=== PATIENT | female | born 1965 | race Caucasian/White ===

== ENCOUNTER 2019-05-11 06:00 | Day surgery (SDC) | payer BC ==
[~2019-05-11] VITALS: Ht 175.3 cm; Wt 98.0 kg
--- NOTE | ~2019-05-11 | OR ---
[facility] [address] [place] [place], [place] [address] [place] DATE OF OPERATION: 05/11/2019 SURGEON: Chiqui Keys MD PREOPERATIVE DIAGNOSIS: ALVARO-1, abnormal appearing cervix. POSTOPERATIVE DIAGNOSIS: ALVARO-1, abnormal appearing cervix, pending pathology. PROCEDURE: LEEP procedure. ANESTHESIA: General ET. ESTIMATED BLOOD LOSS: 5 mL. INDICATIONS AND FINDINGS: The patient is a 53-year-old female, 4, para 3, AB 1, status post prior tubal ligation, who has an abnormal appearance to her cervix. Recent Pap smear was abnormal as well, and she did have colposcopic biopsies, which revealed ALVARO-1. However, because of the abnormal appearance of the cervix, it was felt that further evaluation was needed. An attempt was made to do the LEEP in the office, but this was unsuccessful secondary to side effects of medication. She was thus brought to the OR. At the time of surgery, exam under anesthesia appeared normal other than her cervix had a very large ectropion and had a very woody texture. DESCRIPTION OF PROCEDURE: The patient was prepped and draped in the dorsal lithotomy position. The insulated speculum was placed. The cervix was stained with Lugol's. The entire exocervix did not stain. The large loop was then used to remove the exocervix. The 1st pass was the anterior cervix. Subsequently, small amount on the left posterior was taken off and then the remaining posterior cervix was removed, which was the right and mid using the loop. An endocervical excision was also done using the narrow deep loop. There was lot of mucus as the specimens were obtained. There was a suspicion that these might be multiple tiny nabothian cysts. Following this, the base of the LEEP was treated with the cautery ball. Monsel solution was placed on the base of the cervix following the procedure. PATIENT NAME: FRANCHESKA CRAWFORD OPERATIVE REPORT DATE OF : 67 REPORT #: [id number] PHYSICIAN: CHIQUI KEYS MD PCP: EV PIERRE Priscila[place] REPORT IS CONFIDENTIAL AND NOT TO BE RELEASED WITHOUT AUTHORIZATION [address] [address] [place] Good hemostasis was noted. The instruments were then removed. The patient was taken to the recovery room in good condition. Chiqui Keys MD PJW/MODL /[id number] cc: [facility] Copies: ~ PATIENT NAME: FRANCHESKA CRAWFORD OPERATIVE REPORT DATE OF : 67 REPORT #: [id number] PHYSICIAN: CHIQUI KEYS MD PCP: EV PIERRE REPORT IS CONFIDENTIAL AND NOT TO BE RELEASED WITHOUT AUTHORIZATION
[~2019-05-11 06:00] MED LIST: ALEVE220 M1 PO; FISH OIL 1,0001 EAC6 PO; TYLENOL EXTRA500 MG PO; VENTOLIN HFA18 GM INH
--- NOTE | 2019-05-11 08:20 | NUR ---
[id number]: PT NOTIFIED OF DELAY IN SURGERY DUE TO EMERGENT CASE IN [facility]. PT PROVIDED WARM BLANKETS AND SWETA HUGGER PLACED ON WARM. PER PT REQUEST, ICE PACK PROVIDED FOR PT CHRONIC RIGHT SHOULDER PAIN. PT FAMILY AT BEDSIDE.
--- NOTE | 2019-05-11 09:32 | NUR ---
05/11/19 0932 Kari Guan 0914 PT ARRIVED TO PACU WITH ORAL AIRWAY IN PLACE. PT NONAROUSABLE TO PAINFUL STIMULI. RESP EVEN AND UNLABORED. 919 PT WAKES ON HER OWN AND STARTS TO SPIT AIRWAY OUT. PT ABLE TO FOLLOW COMMANDS TO OPEN MOUTH AND AIRWAY REMOVED. 924 PT REPORTS PAIN IN SHOULDER AND HER BASELINE IN SHOULDER. ICE TO SHOULDER. MD AT BEDSIDE TALKING TO PT. PT DENIES PAIN AND NAUSEA. 929 PT USING CHAPSTICK. VSS.
--- NOTE | 2019-05-11 09:48 | NUR ---
PT APPEARS TO BE DEALING APPROPRIATELY WITH DELAY CAUSED BY EMERGENCY IN [facility]. SHE IS ALERT, ORIENTED AND SUPPORTED BY HER . EXTENDED A BLESSING, DR SAHA WAITING TO ENTER . WILL FOLLOW NEEDED
--- NOTE | 2019-05-11 09:48 | NUR ---
PT ARRIVES TO DS RM 5 FROM PACU AWAKE AND ALERT. PT RESP EVEN AND UNLABORED, SATS ABOVE 94% ON RA. PT STATES NO PAIN IN SURGICAL SITE BUT 5/10 PAIN IN RIGHT ARM FROM CHRONIC TENDONITIS, PT HAS ICE PACK IN PLACE. PT DENIES NAUSEA, TOLERATES ICED WATER AND COFFEE PER REQUEST. CALL LIGHT WITHIN REACH.
--- NOTE | 2019-05-11 10:00 | NUR ---
PT PROVIDED PAIN MEDICATION FOR CHRONIC "THROBBING" SHOULDER PAIN, SEE EMAR. PT TOLERATES CRACKERS, IS STILL "STARVING." LUNCH ORDERED FOR PT. PT SPOUSE AT BEDSIDE. DC CRITERIA EXPLAINED TO PT. CALL LIGHT REMAINS AT PT SIDE.
[2019-05-11] MEDS ORDERED: NORCO 5-325 TA1 EACH PO (10:38)
[2019-05-11] MEDS ORDERED: IBUPROFEN800 MG PO (10:39)
--- NOTE | 2019-05-11 10:52 | NUR ---
PT TOLERATES SOUP WITH NO C/O NAUSEA. PT STATES RIGHT SHOULDER PAIN HAS DECREASED "BUT IS DEFINIELY STILL THERE." PT STATES NO SURGICAL SITE PAIN. PT ENCOURAGED TO USE CALL LIGHT WITH URGE TO VOID. ICE PACK REMAINS ON RIGHT SHOULDER.
--- NOTE | 2019-05-11 11:53 | NUR ---
1145: PT HAS URGE TO VOID. RN ASSISTS PT TO SIDE OF BED, DENIES NAUSEA AND STATES SLIGHT DIZZINESS WITH POSITION CHANGE. PT ENCOURAGED TO GO AT OWN PACE AND STAND WHEN READY. PT STANDS WITH RN ASSIST, DENIES DIZZINESS AND AMBULATES WITH STEADY GAIT TO BATHROOM. PT ABLE TO VOID 400 MLS YELLOW URINE WITH NO PROBLEMS. PT BACK TO RM 5 TO GET DRESSED, SPOUSE IN RM.
--- NOTE | 2019-05-11 14:40 | NUR ---
[id number]: DC INSTRUCTIONS GIVEN IN PRESENCE OF PT AND SPOUSE, ALL QUESTIONS ANSWERED. PAIN MEDICATION PRESCRIPTION IN DC PACKET PROVIDED TO PT. PT SPOUSE PULLS PERSONAL VEHICLE TO FRONT ENTRANCE OF HOSPITAL, PT DC'S VIA WC WITH DS STAFF.
--- NOTE | 2019-05-15 15:51 | PATH ---
[facility] [address] [place], [place] [address] Signed SPECIMEN(S): A ANTERIOR SPECIMEN(S): B LEFT POSTERIOR SPECIMEN(S): C RIGHT MID POSTERIOR SPECIMEN(S): D ENDOCERVIX SPECIMEN SOURCE: A. ANTERIOR B. LEFT POSTERIOR C. RIGHT MID POSTERIOR D. ENDOCERVIX CLINICAL HISTORY: ALVARO I cervical dysplasia. FINAL PATHOLOGIC DIAGNOSIS: A. Cervix, anterior, excision: - Cervical and endocervical mucosa with squamous metaplasia and inflammation, see Comment. B. Cervix, left posterior, excision: - Endocervical mucosa with inflammation and focal squamous metaplasia, see Comment. C. Cervix, right mid posterior, excision: - Cervical and endocervical mucosa with squamous metaplasia and inflammation, see Comment. D. Endocervix, biopsy: - Endocervix with focal squamous metaplasia and inflammation, see Comment. COMMENT: Sections of all four specimens show squamous metaplasia of the mucosa with both chronic and focal acute inflammation. Areas of mild cellular atypia are seen in these metaplastic regions, but are favored to be reactive in nature given the degree of inflammation present. No atypical or increased mitoses are seen. Immunohistochemical stains (with appropriately staining controls) for p16 was performed on sections of the right mid posterior cervix (C) and the endocervical biopsy (D) and are negative for high-grade dysplasia. No malignancy is present. The patient's most recent cervical cytology specimen from 12/08/2018 ([id number]), resulted as "Atypical squamous cells of undetermined significance" (ASC-US), was reviewed. NAL:cml:C2NR PATIENT NAME: FRANCHESKA CRAWFORD PATHOLOGY DATE OF : 67 REPORT #: [id number] PHYSICIAN: ROHAN ALVARADO PCP: EV PIERRE Margie REPORT IS CONFIDENTIAL AND NOT TO BE RELEASED WITHOUT AUTHORIZATION [facility] [address] [place] [id number] Signed MICROSCOPIC EXAMINATION: Histologic sections of all submitted blocks are examined by light microscopy. These findings, together with the gross examination, support the pathologic diagnosis. GROSS DESCRIPTION: Four specimens are received in four containers, labeled "GRETTA." A. The specimen, labeled "GRETTA, anterior cervix," is received in formalin and consists of a 2.3 x 1.4 x 0.5 cm ovoid shaped vanegas smooth portion of tissue with mucosa on one side. Specimen is entirely submitted in cassettes (A1-A2). B. The specimen, labeled "GRETTA, left posterior cervix," is received in formalin and consists of a 1.7 x 0.7 x 0.3 cm vanegas-pink strip of mucosa. Specimen is entirely submitted in cassettes (B1-B2). C. The specimen, labeled "GRETTA, right mid posterior cervix," is received in formalin and consists of a 2.8 x 1.1 x 0.6 cm strip of vanegas-brown rubbery tissue. Specimen is entirely submitted in cassettes (C1-C2). D. The specimen, labeled "GRETTA, endocervix," is received in formalin and consists of a 1.3 x 0.9 x 0.5 cm rectangular shaped portion of vanegas-brown rubbery tissue with a central 0.9 cm disrupted slit-like os. Specimen is entirely submitted in cassettes (D1-D2). AM (under the direct supervision of a pathologist) The Gross Description was prepared using a voice recognition system. The report was reviewed for accuracy; however, sound-alike word errors, addition and/or deletions may occur. If there is any question about this report, please contact Client Services. PERFORMING LABORATORY: The technical component was performed by [facility], [address] [place] [id number] (Oven Worker: Nila Haque MD; CLIA# [id number]). Professional interpretation was performed by [facility], [address] [address] (Oven Worker: Vivek Metcalf MD; CLIA# [id number]). Diagnostician: Marie Storm MD Pathologist Electronically Signed 05/15/2019 PATIENT NAME: FRANCHESKA CRAWFORD PATHOLOGY DATE OF : 67 REPORT #: [id number] PHYSICIAN: ROHAN ALVARADO PCP: EV PIERRE REPORT IS CONFIDENTIAL AND NOT TO BE RELEASED WITHOUT AUTHORIZATION [facility] [address] [place], [place] [address] Signed Copies: ~ PATIENT NAME: FRANCHESKA CRAWFORD PATHOLOGY DATE OF : 67 REPORT #: [id number] PHYSICIAN: ROHAN PATHOLOGY PCP: EV PIERRE REPORT IS CONFIDENTIAL AND NOT TO BE RELEASED WITHOUT AUTHORIZATION
== END 2019-05-11 12:10 | disposition home or self-care (01) ==
LOC: DS 06:00
PROVIDERS: Obstetrics & Gynecology
PROC: 0UBC7ZZ Excision of Cervix, Via Natural or Artificial Opening (ICD-10-PCS; principal; 2019-05-11 06:45)
DX: N87.0 Mild cervical dysplasia (principal); N72 Inflammatory disease of cervix uteri; G43.009 Migraine without aura, not intractable, without status migrainosus; E66.9 Obesity, unspecified; R87.810 Cervical high risk human papillomavirus (HPV) DNA test positive; J45.909 Unspecified asthma, uncomplicated; Z98.51 Tubal ligation status; Z68.31 Body mass index [BMI] 31.0-31.9, adult
CPT/HCPCS: 00940; 84703; 85025; J0131; J1100; J1885; J2405; J2704; J3010; J7121